=== PATIENT | male | born 1945 | race Hispanic/Latino ===

== ENCOUNTER 2021-06-01 22:09 | Emergency (ER) | payer SELFPAY ==
[2021-06-01] MEDS ORDERED: Proparacaine 0.5% Opth 15 ML BOT ONE (23:27)
[2021-06-01] MEDS ORDERED: Fluorescein Opthalmic Strip ONE (23:44)
== END 2021-06-02 00:16 | disposition home or self-care (01) ==
LOC: ERS 22:09
DX: H53.9 Unspecified visual disturbance (principal)
CPT/HCPCS: 99284